=== PATIENT | female | born 1995 | race Caucasian/White ===

== ENCOUNTER 2018-10-31 06:42 | Emergency (ER) | payer SELFPAY ==
[~2018-10-31] VITALS: Ht 152.4 cm; Wt 60.8 kg
[2018-10-31 07:14] LABS: BASO # 0.1 10*3/uL (0.0-0.1); BASO % 0.4 % (0.0-1.0); EOS # 0.2 10*3/uL (0.0-0.4); EOS % 1.1 % (1.0-4.0); HEMATOCRIT 41.7 % (37.0-47.0); LYMPH # 1.7 10*3/uL (1.3-4.4); LYMPH % 13.1 % (27.0-41.0); MEAN CELL VOLUME 96.8 fl (81.0-99.0); MEAN CORPUSCULAR HGB 32.5 pg (27.0-31.0); MEAN CORPUSCULAR HGB CONC 33.6 g/dl (33.0-37.0); MEAN PLATELET VOLUME 10.7 fl (9.6-12.3); MONO # 1.1 10*3/uL (0.1-1.0); MONO % 8.3 % (3.0-9.0); NEUT # 10.1 10*3/uL (2.3-7.9); NEUT % 76.9 % (47.0-73.0); PLATELET COUNT AUTOMATED 242 10*3/uL (130-400); RED BLOOD COUNT 4.31 10*6/uL (4.10-5.10); RED CELL DISTRI WIDTH 12.2 % (0-14.5); WHITE BLOOD COUNT 13.1 10*3/uL (4.8-10.8)
[2018-10-31 07:20] LABS: BILIRUBIN NEGATIVE (NEGATIVE); BLOOD 1+ (NEGATIVE); CLARITY CLEAR (CLEAR); COLOR YELLOW (YELLOW); GLUCOSE NEGATIVE (NEGATIVE); KETONE NEGATIVE (NEGATIVE); LEUKO ESTERASE 2+ (NEGATIVE); NITRITE NEGATIVE (NEGATIVE); UROBILINOGEN 0.2 E.U./dl (0.2-1.0)
[2018-10-31 07:28] LABS: ALBUMIN 3.9 gm/dl (3.1-4.5); ALKALINE PHOSPHATASE 50 U/L (45-117); BUN 14 mg/dl (7-24); CHLORIDE 104 mmol/L (98-107); CREATININE 0.64 mg/dL (0.55-1.02); LIPASE 121 U/L (73-393); POTASSIUM 3.7 mmol/L (3.5-5.1); SGOT/AST 18 IU/L (3-35); SGPT/ALT 21 U/L (12-78); SODIUM 137 mmol/L (136-145); TOTAL PROTEIN 7.6 gm/dL (6.4-8.2)
[2018-10-31 07:30] LABS: BACTERIA 2+; EPITHELIAL CELLS 16-20; WBC 16-20 wbc/hpf (0-5)
[2018-10-31] MEDS ORDERED: CIPRO500 MG PO (20:25)
== END 2018-10-31 09:28 | disposition home or self-care (01) ==
LOC: ED 06:42
PROVIDERS: Emergency Medicine
DX: G89.29 Other chronic pain (principal); R10.2 Pelvic and perineal pain; Z88.6 Allergy status to analgesic agent

== ENCOUNTER 2018-10-31 16:49 | Emergency (ER) | payer SELFPAY ==
[~2018-10-31] VITALS: Ht 152.4 cm; Wt 60.8 kg
[2018-10-31] MEDS ORDERED: CIPRO500 MG PO (20:25)
== END 2018-10-31 20:29 | disposition home or self-care (01) ==
LOC: ED 16:49
DX: N39.0 Urinary tract infection, site not specified (principal); Z88.6 Allergy status to analgesic agent

== ENCOUNTER 2020-02-23 18:28 | Emergency (ER) | payer OTHER ==
[~2020-02-23] VITALS: Ht 152.4 cm; Wt 68.0 kg
[~2020-02-23 18:28] MED LIST: CIPRO500 MG PO
[2020-02-23 19:19] LABS: BILIRUBIN Negative (Negative); BLOOD Negative (Negative); CLARITY Cloudy (Clear); COLOR Yellow (Yellow); GLUCOSE Negative (Negative); KETONE Trace (Negative); LEUKO ESTERASE 2+ (Negative); NITRITE Negative (Negative); PH 5.5 (4.5-8.0); SPECIFIC GRAVITY 1.025 (1.001-1.030); UROBILINOGEN 0.2 E.U./dl (0.0-1.0)
[2020-02-23 19:28] LABS: BACTERIA 1+; EPITHELIAL CELLS 16-20; MUCOUS TRACE; RBC 0-2 rbc/hpf (0-2)
[2020-02-23] MEDS ORDERED: CEFUROXIME AXE500 MG PO (21:51)
== END 2020-02-23 22:23 | disposition home or self-care (01) ==
LOC: ED 18:28
PROVIDERS: Physician Assistant
DX: S40.012A Contusion of left shoulder, initial encounter (principal); N39.0 Urinary tract infection, site not specified; M25.552 Pain in left hip; Z88.6 Allergy status to analgesic agent; Z79.2 Long term (current) use of antibiotics; V49.9XXA Car occupant (driver) (passenger) injured in unspecified traffic accident, initial encounter; Y93.I9 Activity, other involving external motion; Y92.488 Other paved roadways as the place of occurrence of the external cause; Y99.8 Other external cause status

== ENCOUNTER 2020-03-24 23:11 | Emergency (ER) | payer BC ==
[~2020-03-24] VITALS: Ht 152.4 cm; Wt 69.4 kg
[~2020-03-24 23:11] MED LIST changes: +CEFUROXIME AXE500 MG PO
[2020-03-24] MEDS ORDERED: ZITHROMAX250 MG PO (23:35)
[2020-03-24] MEDS ORDERED: MEDROL DOSEPAK4 MG PO (23:35)
== END 2020-03-24 23:46 | disposition home or self-care (01) ==
LOC: ED 23:11
DX: J32.9 Chronic sinusitis, unspecified (principal); Z88.6 Allergy status to analgesic agent

== ENCOUNTER 2021-06-11 19:15 | Emergency (ER) | payer BC ==
[~2021-06-11] VITALS: Ht 152.4 cm; Wt 70.3 kg
[~2021-06-11 19:15] MED LIST changes: +MEDROL DOSEPAK4 MG PO; +ZITHROMAX250 MG PO
[2021-06-11] MEDS ORDERED: AUGMENTIN 875-875 MG PO (19:42)
== END 2021-06-11 19:44 | disposition home or self-care (01) ==
LOC: ED 19:15
DX: J02.9 Acute pharyngitis, unspecified (principal); Z88.6 Allergy status to analgesic agent

== ENCOUNTER 2021-10-29 00:02 | Emergency (ER) | payer SELFPAY ==
[~2021-10-29 00:02] MED LIST changes: +AUGMENTIN 875-875 MG PO
[2021-10-29 00:28] LABS: BILIRUBIN Negative (Negative); BLOOD Negative (Negative); CLARITY Cloudy (Clear); COLOR Yellow (Yellow); GLUCOSE Negative (Negative); KETONE Negative (Negative); LEUKO ESTERASE Negative (Negative); NITRITE Negative (Negative); PH 7.5 (4.5-8.0); SPECIFIC GRAVITY 1.015 (1.001-1.030); UROBILINOGEN 0.2 E.U./dl (0.0-1.0)
[2021-10-29 00:40] LABS: BACTERIA 1+
== END 2021-10-29 01:13 | disposition home or self-care (01) ==
LOC: ED 00:02
PROVIDERS: Internal Medicine
DX: R10.32 Left lower quadrant pain (principal); Z87.42 Personal history of other diseases of the female genital tract; Z88.6 Allergy status to analgesic agent; Z79.2 Long term (current) use of antibiotics; Z79.899 Other long term (current) drug therapy

== ENCOUNTER 2021-10-29 09:15 | Emergency (ER) | payer SELFPAY | END 2021-10-29 14:27 | disposition home or self-care (01) | LOC: ED 09:15 | DX: N83.202 Unspecified ovarian cyst, left side (principal); Z88.6 Allergy status to analgesic agent; Z79.2 Long term (current) use of antibiotics; Z79.899 Other long term (current) drug therapy ==

== ENCOUNTER 2022-01-07 15:42 | Emergency (ER) | payer SELFPAY ==
[~2022-01-07] VITALS: Wt 70.3 kg
== END 2022-01-07 17:46 | disposition home or self-care (01) ==
LOC: ED 15:42
DX: J02.9 Acute pharyngitis, unspecified (principal); Z20.822 Contact with and (suspected) exposure to COVID-19; R11.10 Vomiting, unspecified; R19.7 Diarrhea, unspecified; Z88.6 Allergy status to analgesic agent

== ENCOUNTER 2023-02-21 17:37 | Emergency (ER) | payer BC ==
[~2023-02-21] VITALS: Ht 152.4 cm; Wt 68.0 kg
== END 2023-02-21 20:53 | disposition left against medical advice (07) ==
LOC: ED 17:37
DX: J02.9 Acute pharyngitis, unspecified (principal); R05.9 Cough, unspecified; R53.1 Weakness; R52 Pain, unspecified; Z53.21 Procedure and treatment not carried out due to patient leaving prior to being seen by health care provider

== ENCOUNTER 2023-03-14 08:51 | Emergency (ER) | payer BC ==
[2023-03-14] MEDS ORDERED: ONDANSETRON4 MG SL (10:50)
== END 2023-03-14 11:20 | disposition home or self-care (01) ==
LOC: ED 08:51
DX: S06.0X0A Concussion without loss of consciousness, initial encounter (principal); R11.2 Nausea with vomiting, unspecified; Z88.5 Allergy status to narcotic agent; Z88.8 Allergy status to other drugs, medicaments and biological substances; W22.8XXA Striking against or struck by other objects, initial encounter; Y93.89 Activity, other specified; Y92.59 Other trade areas as the place of occurrence of the external cause; Y99.8 Other external cause status

== ENCOUNTER 2023-06-26 21:21 | Emergency (ER) | payer BC ==
[~2023-06-26] VITALS: Ht 152.4 cm; Wt 64.0 kg
[~2023-06-26 21:21] MED LIST changes: +ONDANSETRON4 MG SL
[2023-06-26] MEDS ORDERED: IBUPROFEN 400 MG TAB PO ONE (21:35)
== END 2023-06-26 23:02 | disposition home or self-care (01) ==
LOC: ED 21:21
DX: S93.601A Unspecified sprain of right foot, initial encounter (principal); S93.401A Sprain of unspecified ligament of right ankle, initial encounter; Z88.5 Allergy status to narcotic agent; Z88.8 Allergy status to other drugs, medicaments and biological substances; W22.8XXA Striking against or struck by other objects, initial encounter; Y93.01 Activity, walking, marching and hiking; Y92.89 Other specified places as the place of occurrence of the external cause; Y99.0 Civilian activity done for income or pay

== ENCOUNTER 2023-12-05 20:03 | Emergency (ER) | payer BC ==
[~2023-12-05] VITALS: Ht 152.4 cm; Wt 60.3 kg
[2023-12-05 20:54] LABS: BASO # 0.1 10*3/uL (0.0-0.1); BASO % 0.7 % (0.0-1.0); EOS # 0.2 10*3/uL (0.0-0.4); HEMATOCRIT 40.2 % (37.0-47.0); LYMPH # 3.1 10*3/uL (1.3-4.4); MEAN CELL VOLUME 94.1 fl (81.0-99.0); MEAN CORPUSCULAR HGB 31.9 pg (27.0-31.0); MEAN CORPUSCULAR HGB CONC 33.8 g/dl (33.0-37.0); MEAN PLATELET VOLUME 10.8 fl (9.6-12.3); MONO # 0.6 10*3/uL (0.1-1.0); MONO % 7.5 % (3.0-9.0); NEUT # 3.4 10*3/uL (2.3-7.9); NEUT % 46.5 % (47.0-73.0); PLATELET COUNT AUTOMATED 252 10*3/uL (130-400); RED BLOOD COUNT 4.27 10*6/uL (4.10-5.10); RED CELL DISTRI WIDTH 12.4 % (0-14.5); WHITE BLOOD COUNT 7.3 10*3/uL (4.8-10.8)
[2023-12-05 21:16] LABS: ALKALINE PHOSPHATASE 39 U/L (46-116); BUN 10 mg/dl (9-23); CHLORIDE 105 mmol/L (98-107); LIPASE 52 U/L (12-53); POTASSIUM 3.7 mmol/L (3.4-5.1); SGPT/ALT 14 U/L (5-49); TOTAL PROTEIN 6.6 gm/dL (6.0-8.0)
[2023-12-05] MEDS ORDERED: Na Phos, Dibasic/Na Phos, Mo 1 EA BOT R ONE (21:30)
[2023-12-05] MEDS ORDERED: MAGNESIUM CITRATE 296 ML BOT PO ONE (21:30)
== END 2023-12-05 21:44 | disposition home or self-care (01) ==
LOC: ED 20:03
PROVIDERS: Nurse Practitioner Family
DX: K59.00 Constipation, unspecified (principal); Z88.5 Allergy status to narcotic agent; Z88.8 Allergy status to other drugs, medicaments and biological substances

== ENCOUNTER 2025-02-15 23:26 | Emergency (ER) | payer BC ==
[~2025-02-15] VITALS: Ht 152.4 cm; Wt 71.7 kg
== END 2025-02-16 02:15 | disposition home or self-care (01) ==
LOC: ED 23:26
DX: J10.1 Influenza due to other identified influenza virus with other respiratory manifestations (principal); Z20.822 Contact with and (suspected) exposure to COVID-19; Z88.5 Allergy status to narcotic agent